=== PATIENT | female | born 1970 | race Caucasian/White ===

== ENCOUNTER 2019-07-28 11:11 | Day surgery (SDC) | payer OTHER ==
[~2019-07-28] VITALS: Ht 177.8 cm; Wt 90.5 kg
[~2019-07-28 11:11] MED LIST: ALBU90OI6 INH; Aspirin EC81 MG PO; BENZ100A PO; CYCL10 PO; FLUSAL2505 INH; FLUSAL5005; META800 PO; Mobic15 MG PO; PRILOSEC OTC20 MG PO; TIOT18; VENL37.5; Ventolin Soln3 ML INH; Vibramycin100 MG PO
[2019-07-28] MEDS ORDERED: FLUT1DIS5 INH (11:40)
== END 2019-07-28 13:51 | disposition home or self-care (01) ==
LOC: ORSCSDS 11:11
PROVIDERS: Obstetrics & Gynecology
PROC: 0U5B8ZZ Destruction of Endometrium, Via Natural or Artificial Opening Endoscopic (ICD-10-PCS; principal; 2019-07-28 12:30)
DX: N92.1 Excessive and frequent menstruation with irregular cycle (principal); J45.909 Unspecified asthma, uncomplicated; F17.210 Nicotine dependence, cigarettes, uncomplicated; K21.9 Gastro-esophageal reflux disease without esophagitis; Z86.73 Personal history of transient ischemic attack (TIA), and cerebral infarction without residual deficits; Z79.899 Other long term (current) drug therapy; Z79.82 Long term (current) use of aspirin
CPT/HCPCS: 88305; J0690; J1885; J2250; J2704; J3010; J7120

== ENCOUNTER → 2021-12-24 | Outpatient (CLI) | payer OTHER ==
[~2021-12-24] MED LIST changes: +FLUT1DIS5 INH; +PROAIR DIGIHAL90 MCG
== END | disposition home or self-care (01) ==
LOC: LAB SHORT 10:56 → PLD 10:56
DX: D22.4 Melanocytic nevi of scalp and neck (principal); D22.5 Melanocytic nevi of trunk
CPT/HCPCS: 88305

== ENCOUNTER 2022-09-20 07:29 | Inpatient (IN) | payer OTHER ==
[~2022-09-20] VITALS: Ht 175.3 cm; Wt 91.6 kg
[~2022-09-20 07:29] MED LIST changes: -FLUSAL2505 INH; +FLUTICASONE-SA1 EAC9 INH; -PROAIR DIGIHAL90 MCG; +PROAIR DIGIHAL90 MCG INH; +TIOT18 INH
[2022-09-20 08:03] LABS: BASOPHILS ABSOLUTE AUTO 0.07 K/mm3 (0.00-0.23); BASOPHILS PERCENT AUTO 0 % (0-2); EOSINOPHILS PERCENT AUTO 0 % (0-6); Hematocrit 42.3 % (33.0-51.0); Hemoglobin 14.3 g/dL (11.5-16.0); IMMATURE GRAN ABSOLUTE AUTO 0.32 K/mm3 (0.00-0.10); IMMATURE GRAN PERCENT AUTO 1 % (0-1); LYMPHOCYTES ABSOLUTE AUTO 0.93 K/mm3 (0.84-5.20); LYMPHOCYTES PERCENT AUTO 3 % (21-46); MONOCYTES ABSOLUTE AUTO 1.56 K/mm3 (0.16-1.47); MONOCYTES PERCENT AUTO 6 % (4-13); Mean Corpuscular HGB 29.4 pg (26.0-34.0); Mean Corpuscular HGB Conc 33.8 g/dL (31.5-36.5); Mean Corpuscular Volume 87 fL (80-100); Mean Platelet Volume 9.1 fL (9.1-12.4); NEUTROPHILS ABSOLUTE AUTO 25.41 K/mm3 (1.96-9.15); NEUTROPHILS PERCENT AUTO 90 % (41-73); Platelet Count 305 K/mm3 (150-400); RDW Coefficient Variation 12.8 % (11.7-14.2); RDW Standard Deviation 40.3 fL (35.1-46.3); Red Blood Cell Count 4.87 M/mm3 (3.80-5.20); White Blood Cell Count 28.29 K/mm3 (4.00-11.30)
[2022-09-20 08:17] LABS: Anion Gap 5 mmol/L (6-16); Blood Urea Nitrogen 13 mg/dL (8-24); Bun/Creatinine Ratio 20.8 (12.0-20.0); CO2, Blood 28 mmol/L (21-32); Calcium, Blood 9.3 mg/dL (8.5-10.1); Chloride, Blood 101 mmol/L (98-108); Creatinine, Blood 0.63 mg/dL (0.40-1.00); Glomerular Filtration Rate 107 (60-); Glucose, Blood 147 mg/dL (70-99); Magnesium, Blood 2.1 mg/dL (1.6-2.4); Potassium, Blood 3.8 mmol/L (3.5-5.5); Sodium, Blood 134 mmol/L (136-145)
[2022-09-20 11:19] LABS: Adenovirus Not Detected (NOT DETECT); Bordetella pertussis Not Detected (NOT DETECT); Chlamydophila pneumoniae Not Detected (NOT DETECT); Coronavirus 229E Not Detected (NOT DETECT); Coronavirus HKU1 Not Detected (NOT DETECT); Coronavirus NL63 Not Detected (NOT DETECT); Coronavirus OC43 Not Detected (NOT DETECT); Human Metapneumovirus Not Detected (NOT DETECT); Human Rhinovirus/Enterovirus Not Detected (NOT DETECT); Influenza A/2009-H1 Not Detected (NOT DETECT); Influenza A/H1 Not Detected (NOT DETECT); Influenza A/H3 Not Detected (NOT DETECT); Influenza B Not Detected (NOT DETECT); Mycoplasma pneumoniae Not Detected (NOT DETECT); Parainfluenza Virus 1 Not Detected (NOT DETECT); Parainfluenza Virus 2 Not Detected (NOT DETECT); Parainfluenza Virus 3 Detected (NOT DETECT); Parainfluenza Virus 4 Not Detected (NOT DETECT); Respiratory Syncytial Virus Not Detected (NOT DETECT); SARS-Cov-2 (COVID-19), BioFire Not Detected (NOT DETECT)
[2022-09-20] MEDS ORDERED: MELATONIN5 M1 PO (12:24)
--- NOTE | 2022-09-20 19:21 | NUR ---
SHIFT SUMMARY: NO ACUTE EVENTS. ON ROOM AIR, SATS > 92%. OCC PROD COUGH, SPUTUM SPECIMEN SENT. C/O PAIN IN L SIDE OF POSTERIOR CHEST AND BACK; MEDICATED WITH TYLENOL WITH A LITTLE RELIEF, DECLINED OFFERED HEATING PAD. DENIED N/V/D, APPETITE POOR. INDEPENDENT IN ROOM. AFEBRILE, VSS.
[2022-09-21 05:04] LABS: BASOPHILS ABSOLUTE AUTO 0.08 K/mm3 (0.00-0.23); BASOPHILS PERCENT AUTO 0 % (0-2); EOSINOPHILS ABSOLUTE AUTO 0.08 K/mm3 (0.00-0.68); EOSINOPHILS PERCENT AUTO 0 % (0-6); Hematocrit 38.4 % (33.0-51.0); Hemoglobin 12.4 g/dL (11.5-16.0); IMMATURE GRAN ABSOLUTE AUTO 0.91 K/mm3 (0.00-0.10); IMMATURE GRAN PERCENT AUTO 3 % (0-1); LYMPHOCYTES PERCENT AUTO 6 % (21-46); MONOCYTES PERCENT AUTO 5 % (4-13); Mean Corpuscular HGB 29.1 pg (26.0-34.0); Mean Corpuscular HGB Conc 32.3 g/dL (31.5-36.5); Mean Corpuscular Volume 90 fL (80-100); Mean Platelet Volume 9.1 fL (9.1-12.4); NEUTROPHILS ABSOLUTE AUTO 23.11 K/mm3 (1.96-9.15); NEUTROPHILS PERCENT AUTO 85 % (41-73); Platelet Count 239 K/mm3 (150-400); RDW Coefficient Variation 13.1 % (11.7-14.2); RDW Standard Deviation 42.7 fL (35.1-46.3); Red Blood Cell Count 4.26 M/mm3 (3.80-5.20); White Blood Cell Count 27.08 K/mm3 (4.00-11.30)
[2022-09-21 05:32] LABS: Bun/Creatinine Ratio 16.9 (12.0-20.0); Calcium, Blood 8.8 mg/dL (8.5-10.1); Creatinine, Blood 0.53 mg/dL (0.40-1.00); Potassium, Blood 3.7 mmol/L (3.5-5.5)
--- NOTE | 2022-09-21 06:36 | NUR ---
SUMMARY: NO ACUTE EVENTS OVERNIGHT PATIENT AOX4. VSS. SPUTUM CULTURE PENDING. PATIENT HAD POSITIVE BLOOD CULTURES THIS AM. NOTIFIED MD. HR SLIGHTLY ELEVATED OVERNIGHT. CALLED AND RECIEVED ORDERS FOR MUCINEX AND TESSOLONS. PATIENT REPORTED IMPROVEMENT IN SYMPTOMS BUT OVERALL FEELS ACHY AND FEVERISH. NO FEVERS NOTED PRN TYLENOL GIVEN.
--- NOTE | 2022-09-21 09:36 | NUR ---
pt laying in bed states she is doing better, a/ox3, pleasant and coopertive with care, follows commands well, states the pain isn't as bad when she coughs as when she came in, lungs are clear very dim in left base, resp even and unlabored, on r/a, has occ productive cough, hrr, no edema noted, ppp+2, cap refill <3sec, vs stable, afebrile, iv sites x2 to yakelin and right wrist, the one on the wrist is stinging with flush, will remove, btx4, abd flat soft nontender, voids without diff, skin c/w/d, maew, chad, call light in reach.
--- NOTE | 2022-09-21 17:34 | NUR ---
pt has had an uneventful day today, no needs or complaints, states feels better than she did yesterday, no acute changes this shift, call light in reach.
--- NOTE | 2022-09-22 05:00 | NUR ---
SUMMARY: NO ACUTE EVENTS OVERNIGHT PATIENT AOX4. VSS. TYLENOL, MUCINEX AND TESSOLONS GIVEN PER EMAR. PATIENT REPORTED IMPROVEMENT IN SYMPTOMS BUT OVERALL FEELS ACHY. CALL LIGHT IN REACH.
[2022-09-22 05:08] LABS: BASOPHILS ABSOLUTE AUTO 0.04 K/mm3 (0.00-0.23); BASOPHILS PERCENT AUTO 0 % (0-2); EOSINOPHILS ABSOLUTE AUTO 0.25 K/mm3 (0.00-0.68); EOSINOPHILS PERCENT AUTO 2 % (0-6); Hematocrit 34.6 % (33.0-51.0); Hemoglobin 11.4 g/dL (11.5-16.0); IMMATURE GRAN ABSOLUTE AUTO 0.12 K/mm3 (0.00-0.10); IMMATURE GRAN PERCENT AUTO 1 % (0-1); LYMPHOCYTES ABSOLUTE AUTO 1.53 K/mm3 (0.84-5.20); LYMPHOCYTES PERCENT AUTO 9 % (21-46); MONOCYTES PERCENT AUTO 6 % (4-13); Mean Corpuscular HGB 29.1 pg (26.0-34.0); Mean Corpuscular HGB Conc 32.9 g/dL (31.5-36.5); Mean Corpuscular Volume 88 fL (80-100); Mean Platelet Volume 9.3 fL (9.1-12.4); NEUTROPHILS ABSOLUTE AUTO 14.15 K/mm3 (1.96-9.15); NEUTROPHILS PERCENT AUTO 82 % (41-73); Platelet Count 255 K/mm3 (150-400); RDW Coefficient Variation 13.2 % (11.7-14.2); RDW Standard Deviation 42.7 fL (35.1-46.3); Red Blood Cell Count 3.92 M/mm3 (3.80-5.20); White Blood Cell Count 17.19 K/mm3 (4.00-11.30)
[2022-09-22 05:33] LABS: Albumin, Blood 2.8 g/dL (3.4-5.0); Anion Gap 4 mmol/L (6-16); Blood Urea Nitrogen 7 mg/dL (8-24); Bun/Creatinine Ratio 13.3 (12.0-20.0); CO2, Blood 26 mmol/L (21-32); Calcium, Blood 8.7 mg/dL (8.5-10.1); Chloride, Blood 106 mmol/L (98-108); Creatinine, Blood 0.53 mg/dL (0.40-1.00); Glomerular Filtration Rate 111 (60-); Glucose, Blood 121 mg/dL (70-99); Phosphorus, Blood 2.9 mg/dL (2.5-4.9); Potassium, Blood 3.5 mmol/L (3.5-5.5); Sodium, Blood 136 mmol/L (136-145)
[2022-09-22] MEDS ORDERED: GUAI600T33 PO (10:29)
[2022-09-22] MEDS ORDERED: VISBIOME 112.51 EACH PO (10:30)
[2022-09-22] MEDS ORDERED: AMOCLA875 PO (10:30)
--- NOTE | 2022-09-22 12:00 | NUR ---
DISCHARGE INSTRUCTIONS COMPLETED AND DISCUSSED WITH PT EXPRESSING UNDERSTANIDNG. SCRIPTS FAXED TO [facility] [employer]. TO [facility] VIA W/C.
== END 2022-09-22 11:31 | disposition home or self-care (01) | DRG 871 ==
LOC: ER 07:29 → MEDS 09:56
PROVIDERS: Student in an Organized Health Care Education/Training Program; ADMIT Family Medicine
DX: A40.3 Sepsis due to Streptococcus pneumoniae (principal); J12.2 Parainfluenza virus pneumonia; J13 Pneumonia due to Streptococcus pneumoniae; E87.1 Hypo-osmolality and hyponatremia; J47.0 Bronchiectasis with acute lower respiratory infection; D64.9 Anemia, unspecified; M54.6 Pain in thoracic spine; Z20.822 Contact with and (suspected) exposure to COVID-19; Z79.899 Other long term (current) drug therapy; Z79.52 Long term (current) use of systemic steroids; Z79.82 Long term (current) use of aspirin; Z79.51 Long term (current) use of inhaled steroids; Z98.890 Other specified postprocedural states; Z90.6 Acquired absence of other parts of urinary tract
CPT/HCPCS: 0202U; 36415; 71046; 80048; 80069; 83605; 83735; 84145; 85025; 87040; 87070; 87186; 87205; 93005; 93010; 94640; 94664; 94760; 94762; 96361; 96365; 96366; 96368; 96375; 99285-25; A9270; J0456; J0696; J1650; J1885; J7030; J7050

== ENCOUNTER → 2024-09-30 | Outpatient (CLI) | payer OTHER ==
[~2024-09-30] MED LIST changes: +AMOCLA875 PO; +GUAI600T33 PO; +MELATONIN5 M1 PO; +SULTRIDS PO; +VISBIOME 112.51 EACH PO
== END ==
LOC: LAB 17:58 → LAB SHORT 17:58
DX: L08.9 Local infection of the skin and subcutaneous tissue, unspecified (principal)
CPT/HCPCS: 87070; 87205

== ENCOUNTER 2024-10-02 18:47 | Emergency (ER) | payer OTHER ==
[~2024-10-02] VITALS: Ht 177.8 cm; Wt 94.8 kg
[~2024-10-02 18:47] MED LIST changes: -SULTRIDS PO
[2024-10-02 19:17] VITALS: BP 158/99
[2024-10-02] MEDS ORDERED: Trimethoprim/Sulfamethoxazole DS Tab PO ONE (19:20)
[2024-10-02] MEDS ORDERED: Diphth,Pertuss(Acell),Tet Vac 0.5 ML VIAL IM ONE (20:30)
[2024-10-02] MEDS ORDERED: SULTRIDS PO (22:31)
[2024-10-02] MEDS ORDERED: Ketorolac Tromethamine 30mg Vial IM ONE (22:40)
== END 2024-10-02 22:45 | disposition home or self-care (01) ==
LOC: ER 18:47
DX: L02.612 Cutaneous abscess of left foot (principal); J44.9 Chronic obstructive pulmonary disease, unspecified; Z79.82 Long term (current) use of aspirin; Z79.899 Other long term (current) drug therapy
CPT/HCPCS: 10060; 96372-59; 99283; A9270; J1885